=== PATIENT | female | born 1980 | race Caucasian/White ===

== ENCOUNTER 2019-09-20 20:32 | Inpatient (IN) | payer MEDICAID ==
[~2019-09-20] VITALS: Ht 165.1 cm; Wt 75.6 kg
[~2019-09-20 20:32] MED LIST: AMOX-117 PO; BUPR-94 PO; BUPR300T53 PO; DOXY-327 PO; HYDR-3965 PO; HYDR-4353 PO; LACT1CAP73 PO; MULT1TAB74 PO; OMEG-166 PO; TOPI50TA24 PO
[2019-09-20] MEDS ORDERED: normal saline 1000ML IV soln IV ONE (21:00)
[2019-09-20 21:31] LABS: BASOPHILS # (AUTO) 0.1 X10'3 (0-0.2); BASOPHILS % (AUTO) 0.6 % (0-1); EOSINOPHILS % (AUTO) 0 % (0-6); HEMATOCRIT 32.5 % (35.0-45.0); LYMPHOCYTES # (AUTO) 0.2 X10'3 (1.1-4.8); LYMPHOCYTES % (AUTO) 1.1 % (21-51); MEAN CORPUSCULAR VOLUME 85.5 FL (78-98); MEAN PLATELET VOLUME 8.6 FL (7.4-10.4); MONOCYTES # (AUTO) 1.1 X10'3 (0-0.9); MONOCYTES % (AUTO) 5.2 % (2-12); NEUTROPHILS # (AUTO) 20.1 X10'3 (1.8-7.7); NEUTROPHILS % (AUTO) 93.1 % (42-75); PLATELET COUNT 184 X10'3 (140-440); RED CELL DISTRIBUTION WIDTH 14.1 % (11.5-14.5); WHITE BLOOD COUNT 21.6 X10'3 (4.5-11.0)
[2019-09-20] MEDS ORDERED: CefTRIAXone 2gm/D5W 50ml 50 ML IV ONE (21:40)
[2019-09-20] MEDS ORDERED: azithromycin/NS 500mg/250ml 250 ML IV ONE (21:40)
[2019-09-20 21:57] LABS: ALANINE AMINOTRANSFERASE 597 U/L (12-78); ALBUMIN 3.1 G/DL (3.4-5.0); ALKALINE PHOSPHATASE 88 IU/L (46-116); ANION GAP 10 (8-16); ASPARTATE AMINO TRANSFERASE 418 U/L (10-37); BILIRUBIN,TOTAL 1.1 MG/DL (0.1-1.0); BLOOD UREA NITROGEN 39 MG/DL (7-18); BUN/CREATININE RATIO 17.3 (6.6-38.0); CALCIUM 7.4 MG/DL (8.5-10.1); CHLORIDE 102 MMOL/L (99-107); CREATININE 2.26 MG/DL (0.40-0.90); ETHANOL < 0.010 GM/DL (0.0-0.010); GLUCOSE 83 MG/DL (70-104); POTASSIUM 4.2 MMOL/L (3.5-5.1); SODIUM 133 MMOL/L (135-145); TOTAL CARBON DIOXIDE 21.2 MMOL/L (24-32); TOTAL PROTEIN 6.1 G/DL (6.4-8.2); eGFR 24 ML/MIN
[2019-09-20 22:55] LABS: URINE AMPHETAMINE SCREEN POSITIVE (Neg); URINE BARBITUATE SCREEN NEGATIVE (Neg); URINE BENZODIAZEPINES SCREEN NEGATIVE (Neg); URINE CANNABINOID SCREEN NEGATIVE (Neg); URINE COCAINE SCREEN NEGATIVE (Neg); URINE METHADONE SCREEN NEGATIVE (Neg); URINE OPIATE SCREEN NEGATIVE (Neg); URINE PHENCYCLIDINE SCREEN NEGATIVE (Neg)
[2019-09-20 23:01] LABS: CLARITY,URINE CLOUDY (Clear); COLOR,URINE YELLOW (Yellow); GLUCOSE, URINE NEGATIVE (Neg); KETONES,URINE NEGATIVE (Neg); LEUKOCYTE ESTERASE ,URINE SMALL (Neg); NITRITES, URINE NEGATIVE (Neg); OCCULT BLOOD,URINE TRACE-INTACT (Neg); PH,URINE 5.5 (4.8-8.0); PROTEIN,URINE 100 mg/dl (Neg)
[2019-09-20 23:03] LABS: UA COLLECTION TYPE STRAIGHT CATH
[2019-09-20] MEDS ORDERED: vancomycin/NS 1 GM ADD-VANTAGE 250 ML IV ONE (23:10)
[2019-09-20 23:11] LABS: AMORPHOUS PHOSPHATES 3+; BACTERIA,URINE 1+ /HPF (Neg); FINE GRANULAR CAST 0-3 /LPF (NEGATIVE); HYALINE CASTS 0-3 /LPF (NEGATIVE); MUCUS STRANDS FEW /LPF (Neg); RBC,URINE 0-2 /HPF (0-2); SQUAMOUS EPITHELIAL CELL,UR MODERATE /LPF (FEW); TRANSITIONAL EPI CELLS,URINE FEW /HPF
--- NOTE | 2019-09-20 23:12 | NUR ---
blood pressure remains in 70's systolic after 2.5 liters. received rocefin and zithromax currently infusing. pt moved to bed 2 from bed 10 for central line placement and hyptension.
--- NOTE | 2019-09-20 23:17 | NUR ---
Dr. Hall at bedside beginning central line placement.
[2019-09-20] MEDS: NORepinephrine 8mg/ 250ml NS 250 ML IV PRN (23:31)
[2019-09-20] MEDS ORDERED: morphine 4 MG/ML inj SYRINge IV PRN (23:55)
[2019-09-20] MEDS ORDERED: ondansetron/PF 4mg/2ml inj IV ONE (23:55)
--- NOTE | 2019-09-20 23:56 | NUR ---
pts girlfriend , roro, has been at bedside intermittently and is supportive and helpful. she pulled me aside privately and reproted toaht the pt did not want to tell the Md or nurses, but that she uses iv meth and last used yesterday just prior to these symptoms starting. I updated AAMIR Edwards.
[2019-09-21] VITALS (21 sets, daily range): BP systolic 89–121; BP diastolic 45–73
[2019-09-21] MEDS ORDERED: NORepinephrine 8mg/ 250ml NS 250 ML IV PRN (01:07)
[2019-09-21] MEDS ORDERED: normal saline 1000ml 1,000 ML IV PRN (01:07)
[2019-09-21] MEDS ORDERED: potassium Cl 20 mEq SR tablet PO PRN (01:10)
[2019-09-21] MEDS ORDERED: acetaminophen 325mg tablet PO PRN (01:10)
[2019-09-21] MEDS ORDERED: potassium Cl 20mEq/100mL bag 100 ML IV PRN ×2 (01:10)
[2019-09-21] MEDS ORDERED: ondansetron/PF 4mg/2ml inj IV PRN (01:10)
[2019-09-21] MEDS ORDERED: acetaminophen 650mg rectal suppository RC PRN (01:10)
[2019-09-21] MEDS: normal saline 1000ml 1,000 ML IV SCH ×3 (02:04→21:26)
[2019-09-21 02:25] LABS: TROPONIN I < 0.04 NG/ML (0.0-0.05)
[2019-09-21 02:58] LABS: BASOPHILS % (AUTO) 0.1 % (0-1); EOSINOPHILS % (AUTO) 0.1 % (0-6); HEMATOCRIT 28.8 % (35.0-45.0); HEMOGLOBIN 9.6 g/dl (12.0-16.0); LYMPHOCYTES # (AUTO) 0.5 X10'3 (1.1-4.8); MEAN CORPUSCULAR HEMOGLOBIN 28.4 PG (27.0-31.0); MEAN CORPUSCULAR HGB CONC 33.4 g/dL (33.0-36.5); MEAN CORPUSCULAR VOLUME 84.9 FL (78-98); MEAN PLATELET VOLUME 8.9 FL (7.4-10.4); MONOCYTES # (AUTO) 1.2 X10'3 (0-0.9); MONOCYTES % (AUTO) 5.5 % (2-12); NEUTROPHILS # (AUTO) 20.7 X10'3 (1.8-7.7); NEUTROPHILS % (AUTO) 92.3 % (42-75); PLATELET COUNT 166 X10'3 (140-440); RED BLOOD COUNT 3.39 X10'6 (4.20-5.60); WHITE BLOOD COUNT 22.5 X10'3 (4.5-11.0)
--- NOTE | 2019-09-21 03:00 | NUR ---
I have received report from Deshawn FLOR from ED and had the opportunity to ask questions. Room is set up and ready for PT arrival.
[2019-09-21 03:07] LABS: PARTIAL THROMBOPLASTIN TIME 39 SECONDS (22-32)
[2019-09-21 03:16] LABS: ANION GAP 10 (8-16); BLOOD UREA NITROGEN 33 MG/DL (7-18); BUN/CREATININE RATIO 18.5 (6.6-38.0); CHLORIDE 107 MMOL/L (99-107); CREATININE 1.78 MG/DL (0.40-0.90); GLUCOSE 86 MG/DL (70-104); POTASSIUM 3.8 MMOL/L (3.5-5.1); SODIUM 137 MMOL/L (135-145); TOTAL CARBON DIOXIDE 20.1 MMOL/L (24-32)
[2019-09-21 03:17] LABS: ALANINE AMINOTRANSFERASE 466 U/L (12-78); ALBUMIN 2.7 G/DL (3.4-5.0); ALKALINE PHOSPHATASE 80 IU/L (46-116); ASPARTATE AMINO TRANSFERASE 293 U/L (10-37); BILIRUBIN,TOTAL 0.7 MG/DL (0.1-1.0); CALCIUM 6.4 MG/DL (8.5-10.1); CHOL/HDL RATIO 1.9 (0.00-4.99); CHOLESTEROL 86 MG/DL (0-200); HDL CHOLESTEROL 45 MG/DL (35-60); LDL CHOLESTEROL 24 MG/DL (50-100); MAGNESIUM 1.6 MG/DL (1.5-2.4); TOTAL PROTEIN 5.5 G/DL (6.4-8.2); TRIGLYCERIDES 59 MG/DL (20-135); eGFR 32 ML/MIN
[2019-09-21 03:45] LABS: OXYGEN SATURATION (MIXED VEN) 73.4 % (60-80); PO2 MIXED VENOUS (TEMP COR) 40.7 mmHg (35-46)
--- NOTE | 2019-09-21 03:45 | NUR ---
PT arrived from ED via gurney. PT transferred over to ICU bed via slide-board and placed on bedside monitor. PT is on RA and tolerating well, O2 sat >97%. Pt is on Levo running to RT IJ CVL @ 0.15mcg/kg/min. PT is afebrile with temp of 37.5. No skin issues noted other than scab to RT hills. PT turns self easily. Bed is locked and low. Call light is with in reach. Will continue to monitor.
--- NOTE | 2019-09-21 06:42 | NUR ---
Problems reprioritized. Patient report given, questions answered & plan of care reviewed with Vangie FLOR.
--- NOTE | 2019-09-21 06:44 | NUR ---
Patient in room CICU 2006. I have received report from Tabatha FLOR and had the opportunity to ask questions and assume patient care.
[2019-09-21] MEDS: CEFEPIME 2gm in D5W 50mL 50 ML IV SCH ×2 (07:40→19:43)
[2019-09-21] MEDS: docusate sod 100mg capsule PO SCH ×2 (07:44→20:00)
[2019-09-21] MEDS ORDERED: heparin, porcine 5000 units/ml vial SQ SCH (08:00)
[2019-09-21] MEDS: K, MAG and/or Phos replacement - Verify level? MC SCH (08:00)
[2019-09-21] MEDS ORDERED: PANT-47 PO (10:35)
--- NOTE | 2019-09-21 11:00 | NUR ---
notified Dr. Pride of Ca of 6.4 and ionized Ca of 1.03; no new orders received
--- NOTE | 2019-09-21 12:05 | NUR ---
Eating well and good appetite, eating 75-100% of heart healthy diet, meeting needs. Admitted with septic shock, UTI, transaminitis, receiving IV antibiotics for infective endocarditis. Recommend: 1. continue heart healthy diet 2. bowel regularity 3. wt per rx Addendum: 09/21/19 at [address] Amended: Links added.
[2019-09-21] MEDS: NORepinephrine 8mg/ 250ml NS 250 ML IV PRN (12:58)
[2019-09-21] MEDS ORDERED: DOPamine 400mg/D5W 250ml 250 ML IV SCH ×2 (13:45→14:40)
--- NOTE | 2019-09-21 14:33 | NUR ---
turned of levophed per Dr. Pride and started dopamine. BP decreased to 63/24. restarted levophed at 0.2mcg/kg/hr and d/cd dopamine. New BP 102/57. aware; new orders received.
[2019-09-21] MEDS: acetaminophen 325mg tablet PO PRN (15:22)
--- NOTE | 2019-09-21 18:34 | NUR ---
Patient report given, questions answered & plan of care reviewed with Tabatha FLOR.
--- NOTE | 2019-09-21 18:40 | NUR ---
Patient in room CICU 2006. I have received report from Vangie FLOR, and had the opportunity to ask questions and assume patient care.
[2019-09-21] MEDS ORDERED: vancomycin/NS 1 GM ADD-VANTAGE 250 ML IV SCH (23:00)
[2019-09-22] VITALS (28 sets, daily range): BP systolic 65–141; BP diastolic 39–84
[2019-09-22 04:24] LABS: BASOPHILS % (AUTO) 0.3 % (0-1); EOSINOPHILS # (AUTO) 0.1 X10'3 (0-0.9); EOSINOPHILS % (AUTO) 1.1 % (0-6); HEMATOCRIT 26.1 % (35.0-45.0); LYMPHOCYTES # (AUTO) 0.7 X10'3 (1.1-4.8); LYMPHOCYTES % (AUTO) 6.9 % (21-51); MEAN CORPUSCULAR HEMOGLOBIN 29.5 PG (27.0-31.0); MEAN CORPUSCULAR HGB CONC 34.5 g/dL (33.0-36.5); MEAN CORPUSCULAR VOLUME 85.4 FL (78-98); MEAN PLATELET VOLUME 9.5 FL (7.4-10.4); MONOCYTES # (AUTO) 0.5 X10'3 (0-0.9); MONOCYTES % (AUTO) 4.7 % (2-12); NEUTROPHILS # (AUTO) 8.4 X10'3 (1.8-7.7); PLATELET COUNT 126 X10'3 (140-440); RED BLOOD COUNT 3.05 X10'6 (4.20-5.60); RED CELL DISTRIBUTION WIDTH 14.1 % (11.5-14.5); WHITE BLOOD COUNT 9.6 X10'3 (4.5-11.0)
[2019-09-22 04:32] LABS: PARTIAL THROMBOPLASTIN TIME 36 SECONDS (22-32)
[2019-09-22 04:34] LABS: ANION GAP 9 (8-16); CHLORIDE 111 MMOL/L (99-107); GLUCOSE 85 MG/DL (70-104); POTASSIUM 3.5 MMOL/L (3.5-5.1); SODIUM 142 MMOL/L (135-145); TOTAL CARBON DIOXIDE 22.1 MMOL/L (24-32)
[2019-09-22 04:35] LABS: ALANINE AMINOTRANSFERASE 292 U/L (12-78); ALBUMIN 2.4 G/DL (3.4-5.0); ALBUMIN/GLOBULIN RATIO 0.9 (1.1-1.5); ALKALINE PHOSPHATASE 86 IU/L (46-116); ASPARTATE AMINO TRANSFERASE 105 U/L (10-37); BILIRUBIN,TOTAL 0.3 MG/DL (0.1-1.0); BLOOD UREA NITROGEN 15 MG/DL (7-18); BUN/CREATININE RATIO 15.6 (6.6-38.0); CALCIUM 7.5 MG/DL (8.5-10.1); CREATININE 0.96 MG/DL (0.40-0.90); MAGNESIUM 1.9 MG/DL (1.5-2.4); PHOSPHORUS 2.3 MG/DL (2.3-4.5); TOTAL PROTEIN 5.2 G/DL (6.4-8.2); eGFR 64 ML/MIN
[2019-09-22] MEDS ORDERED: ibuprofen 200mg tablet PO ONE (05:10)
--- NOTE | 2019-09-22 06:28 | NUR ---
Patient in room CICU 2006. I have received report from Tabatha FLOR and had the opportunity to ask questions and assume patient care.
[2019-09-22] MEDS: normal saline 1000ml 1,000 ML IV SCH ×3 (07:07→20:44)
[2019-09-22 07:55] LABS: COMPLEMENT C3, SERUM 77 mg/dL (82-167); COMPLEMENT C4, SERUM 23 mg/dL (14-44)
[2019-09-22] MEDS: docusate sod 100mg capsule PO SCH ×2 (08:00→19:49)
[2019-09-22] MEDS: K, MAG and/or Phos replacement - Verify level? MC SCH (08:00)
[2019-09-22 08:10] LABS: HEP B CORE AB, IGM Negative (Negative); HEPATITIS C ANTIBODY <0.1 s/co ratio (0.0-0.9)
[2019-09-22] MEDS: pantoprazole 40mg Tablet.DR PO SCH (08:20)
[2019-09-22] MEDS: buPROPion SR 150mg tablet PO SCH ×3 (08:20→19:48)
[2019-09-22] MEDS: CEFEPIME 2gm in D5W 50mL 50 ML IV SCH ×2 (08:21→19:48)
[2019-09-22] MEDS ORDERED: normal saline 1000ml 1,000 ML IV ONE ×2 (11:25→14:40)
[2019-09-22] MEDS: vancomycin/NS 1 GM ADD-VANTAGE 250 ML IV SCH (12:23)
--- NOTE | 2019-09-22 14:42 | NUR ---
Patient report given, questions answered & plan of care reviewed with Doug FLOR.
--- NOTE | 2019-09-22 14:48 | NUR ---
Patient in room CICU 2006. I have received report from Zuleyka FLOR and had the opportunity to ask questions and assume patient care.
--- NOTE | 2019-09-22 16:31 | NUR ---
Pt complains of epigastric pain, full feeling
--- NOTE | 2019-09-22 18:25 | NUR ---
Patient in room CICU 2006. I have received report from Doug FLOR, and had the opportunity to ask questions and assume patient care.
--- NOTE | 2019-09-22 18:26 | NUR ---
Problems reprioritized. Patient report given, questions answered & plan of care reviewed with Tabatha FLOR.
--- NOTE | 2019-09-22 19:30 | NUR ---
Levo is off. Pt is tolerating well thus far. Will continue to monitor.
[2019-09-23] VITALS (23 sets, daily range): BP systolic 95–129; BP diastolic 45–71
[2019-09-23] MEDS: vancomycin/NS 1 GM ADD-VANTAGE 250 ML IV SCH ×3 (00:32→23:20)
[2019-09-23] MEDS ORDERED: lactulose 20gm/30ml cup PO PRN (01:10)
[2019-09-23 03:35] LABS: BASOPHILS % (AUTO) 0.4 % (0-1); EOSINOPHILS # (AUTO) 0.2 X10'3 (0-0.9); EOSINOPHILS % (AUTO) 1.9 % (0-6); HEMATOCRIT 25.8 % (35.0-45.0); HEMOGLOBIN 8.8 g/dl (12.0-16.0); LYMPHOCYTES % (AUTO) 11.2 % (21-51); MEAN CORPUSCULAR HEMOGLOBIN 29.1 PG (27.0-31.0); MEAN CORPUSCULAR HGB CONC 34.1 g/dL (33.0-36.5); MEAN CORPUSCULAR VOLUME 85.4 FL (78-98); MEAN PLATELET VOLUME 9.1 FL (7.4-10.4); MONOCYTES # (AUTO) 0.5 X10'3 (0-0.9); MONOCYTES % (AUTO) 5.3 % (2-12); NEUTROPHILS # (AUTO) 7.2 X10'3 (1.8-7.7); NEUTROPHILS % (AUTO) 81.2 % (42-75); PLATELET COUNT 146 X10'3 (140-440); RED BLOOD COUNT 3.02 X10'6 (4.20-5.60); RED CELL DISTRIBUTION WIDTH 14.2 % (11.5-14.5); WHITE BLOOD COUNT 8.8 X10'3 (4.5-11.0)
[2019-09-23 03:43] LABS: PARTIAL THROMBOPLASTIN TIME 31 SECONDS (22-32)
[2019-09-23 03:45] LABS: ALANINE AMINOTRANSFERASE 203 U/L (12-78); ALBUMIN 2.4 G/DL (3.4-5.0); ALBUMIN/GLOBULIN RATIO 0.8 (1.1-1.5); ALKALINE PHOSPHATASE 96 IU/L (46-116); ANION GAP 9 (8-16); ASPARTATE AMINO TRANSFERASE 49 U/L (10-37); BILIRUBIN,TOTAL 0.4 MG/DL (0.1-1.0); BLOOD UREA NITROGEN 9 MG/DL (7-18); BUN/CREATININE RATIO 12.5 (6.6-38.0); CALCIUM 7.8 MG/DL (8.5-10.1); CHLORIDE 112 MMOL/L (99-107); CREATININE 0.72 MG/DL (0.40-0.90); GLUCOSE 77 MG/DL (70-104); MAGNESIUM 1.6 MG/DL (1.5-2.4); PHOSPHORUS 2.4 MG/DL (2.3-4.5); POTASSIUM 3.4 MMOL/L (3.5-5.1); SODIUM 141 MMOL/L (135-145); TOTAL PROTEIN 5.3 G/DL (6.4-8.2); eGFR 90 ML/MIN
--- NOTE | 2019-09-23 04:30 | NUR ---
Levo remains off and PT is tolerating well. VSS, SBP>100. Will continue to monitor.
--- NOTE | 2019-09-23 06:39 | NUR ---
Problems reprioritized. Patient report given, questions answered & plan of care reviewed with Ester FLOR.
--- NOTE | 2019-09-23 06:41 | NUR ---
Patient in room CICU 2006. I have received report from Tabatha FLOR and had the opportunity to ask questions and assume patient care.
[2019-09-23] MEDS: CEFEPIME 2gm in D5W 50mL 50 ML IV SCH ×2 (08:30→20:53)
[2019-09-23] MEDS: buPROPion SR 150mg tablet PO SCH ×3 (08:30→20:00)
[2019-09-23] MEDS: pantoprazole 40mg Tablet.DR PO SCH (08:30)
[2019-09-23] MEDS: docusate sod 100mg capsule PO SCH ×2 (08:30→20:53)
[2019-09-23] MEDS: potassium Cl 20 mEq SR tablet PO PRN ×3 (08:33→17:42)
[2019-09-23] MEDS: K, MAG and/or Phos replacement - Verify level? MC SCH (08:34)
[2019-09-23] MEDS ORDERED: VANCOMYCIN LEVEL IV ONE ×3 (10:30→22:30)
--- NOTE | 2019-09-23 14:21 | NUR ---
clarified orders for CT of abdomen for RUQ pain to be done at 09/24/19 @ 0900, start bowel prep tonight per dr. hilario.
--- NOTE | 2019-09-23 18:24 | NUR ---
Problems reprioritized. Patient report given, questions answered & plan of care reviewed with Destiney FLOR.
--- NOTE | 2019-09-23 18:30 | NUR ---
Patient in room CICU 2006. I have received report from rn and had the opportunity to ask questions and assume patient care.
[2019-09-23] MEDS: diatr meglu/diatrizoate 30ml oral sol.-(3 dose) bottle PO SCH (20:53)
[2019-09-24] VITALS (18 sets, daily range): BP systolic 103–133; BP diastolic 45–77
[2019-09-24 02:52] LABS: BASOPHILS % (AUTO) 0.6 % (0-1); EOSINOPHILS # (AUTO) 0.2 X10'3 (0-0.9); EOSINOPHILS % (AUTO) 4.1 % (0-6); HEMATOCRIT 23.7 % (35.0-45.0); LYMPHOCYTES # (AUTO) 0.9 X10'3 (1.1-4.8); LYMPHOCYTES % (AUTO) 21.4 % (21-51); MEAN CORPUSCULAR HEMOGLOBIN 28.5 PG (27.0-31.0); MEAN CORPUSCULAR HGB CONC 33.6 g/dL (33.0-36.5); MEAN CORPUSCULAR VOLUME 84.8 FL (78-98); MEAN PLATELET VOLUME 9.2 FL (7.4-10.4); MONOCYTES # (AUTO) 0.6 X10'3 (0-0.9); MONOCYTES % (AUTO) 13.9 % (2-12); NEUTROPHILS # (AUTO) 2.6 X10'3 (1.8-7.7); PARTIAL THROMBOPLASTIN TIME 32 SECONDS (22-32); PLATELET COUNT 127 X10'3 (140-440); RED BLOOD COUNT 2.79 X10'6 (4.20-5.60); RED CELL DISTRIBUTION WIDTH 13.8 % (11.5-14.5); WHITE BLOOD COUNT 4.4 X10'3 (4.5-11.0)
[2019-09-24 02:56] LABS: ALANINE AMINOTRANSFERASE 170 U/L (12-78); ALBUMIN 2.2 G/DL (3.4-5.0); ALBUMIN/GLOBULIN RATIO 0.8 (1.1-1.5); ALKALINE PHOSPHATASE 101 IU/L (46-116); ANION GAP 9 (8-16); ASPARTATE AMINO TRANSFERASE 75 U/L (10-37); BILIRUBIN,TOTAL 0.3 MG/DL (0.1-1.0); BLOOD UREA NITROGEN 5 MG/DL (7-18); BUN/CREATININE RATIO 7.4 (6.6-38.0); CHLORIDE 114 MMOL/L (99-107); CREATININE 0.68 MG/DL (0.40-0.90); GLUCOSE 72 MG/DL (70-104); MAGNESIUM 1.3 MG/DL (1.5-2.4); PHOSPHORUS 2.7 MG/DL (2.3-4.5); POTASSIUM 3.2 MMOL/L (3.5-5.1); SODIUM 143 MMOL/L (135-145); TOTAL CARBON DIOXIDE 19.9 MMOL/L (24-32); eGFR > 90 ML/MIN
--- NOTE | 2019-09-24 06:38 | NUR ---
Patient in room CICU 2006. I have received report from Destiney and had the opportunity to ask questions and assume patient care.
[2019-09-24] MEDS: diatr meglu/diatrizoate 30ml oral sol.-(3 dose) bottle PO SCH ×2 (07:00→10:03)
[2019-09-24] MEDS: K, MAG and/or Phos replacement - Verify level? MC SCH (08:00)
[2019-09-24] MEDS: buPROPion SR 150mg tablet PO SCH ×3 (08:25→20:00)
[2019-09-24] MEDS: docusate sod 100mg capsule PO SCH ×2 (08:25→19:46)
[2019-09-24] MEDS: potassium Cl 20 mEq SR tablet PO PRN ×3 (08:25→18:12)
[2019-09-24] MEDS: pantoprazole 40mg Tablet.DR PO SCH (08:25)
[2019-09-24] MEDS: CEFEPIME 2gm in D5W 50mL 50 ML IV SCH (08:26)
[2019-09-24] MEDS ORDERED: iohexol 300mg/ml 100ml inj. ONE (10:09)
--- NOTE | 2019-09-24 10:14 | NUR ---
Patient left for CT at this time accompanied by CT and BASIA Forrest.
--- NOTE | 2019-09-24 10:39 | NUR ---
Adriane FLOR has returned with patient from CT.
--- NOTE | 2019-09-24 10:47 | NUR ---
Patient's female friend in room at this time, patient does not appear to be in distress.
--- NOTE | 2019-09-24 10:53 | NUR ---
Went to check patient pulse oximeter, found patient finishing eating [employer] food, which friend brought for patient.
--- NOTE | 2019-09-24 12:28 | NUR ---
Informed Dr Pride of magnesium 1.3. He stated "That's pretty trivial compared to her meth use. Let's stop checking it."
--- NOTE | 2019-09-24 13:10 | NUR ---
Patient states she is "cold." Patient given two warm blankets, and temperature in room increased. Patient does not appear to be in distress at this time.
--- NOTE | 2019-09-24 13:19 | NUR ---
Patient given prescribed diet at this time. Patient does not appear to be in distress.
[2019-09-24] MEDS ORDERED: furosemide 20MG tablet PO ONE (15:05)
[2019-09-24] MEDS ORDERED: levoFLOXACIN 500mg tablet PO ONE (15:05)
[2019-09-24] MEDS: acetaminophen 325mg tablet PO PRN (16:07)
--- NOTE | 2019-09-24 17:27 | NUR ---
Problems reprioritized. Patient report given, questions answered & plan of care reviewed with Blanca. Pt transported to room 357-A with all personal belongings via wc.
--- NOTE | 2019-09-24 17:31 | NUR ---
Received pt report from CICU. Pt on surgical floor, A&O x3. V/S 99.0, HR 94, Resp 16, BP 116/42, O2sat 100% R/A. resting comfortably in bed at this time.
--- NOTE | 2019-09-24 19:14 | NUR ---
Problems reprioritized. Patient report given, questions answered & plan of care reviewed with BASIA Marvin.
[2019-09-25] VITALS: BP 94/42
[2019-09-25 06:01] LABS: BASOPHILS % (AUTO) 0.7 % (0-1); EOSINOPHILS # (AUTO) 0.2 X10'3 (0-0.9); EOSINOPHILS % (AUTO) 5.1 % (0-6); HEMATOCRIT 26.2 % (35.0-45.0); LYMPHOCYTES # (AUTO) 0.8 X10'3 (1.1-4.8); LYMPHOCYTES % (AUTO) 21.2 % (21-51); MEAN CORPUSCULAR HEMOGLOBIN 28.8 PG (27.0-31.0); MEAN CORPUSCULAR HGB CONC 34.2 g/dL (33.0-36.5); MEAN PLATELET VOLUME 9.7 FL (7.4-10.4); MONOCYTES # (AUTO) 0.9 X10'3 (0-0.9); MONOCYTES % (AUTO) 21.8 % (2-12); NEUTROPHILS % (AUTO) 51.2 % (42-75); PLATELET COUNT 151 X10'3 (140-440); RED BLOOD COUNT 3.12 X10'6 (4.20-5.60); WHITE BLOOD COUNT 3.9 X10'3 (4.5-11.0)
--- NOTE | 2019-09-25 06:22 | NUR ---
Patient in room [facility] 357. I have received report from BASIA Marvin and had the opportunity to ask questions and assume patient care.
[2019-09-25 06:32] LABS: ALANINE AMINOTRANSFERASE 161 U/L (12-78); ALBUMIN 2.5 G/DL (3.4-5.0); ALBUMIN/GLOBULIN RATIO 0.7 (1.1-1.5); ALKALINE PHOSPHATASE 120 IU/L (46-116); ANION GAP 6 (8-16); ASPARTATE AMINO TRANSFERASE 61 U/L (10-37); BILIRUBIN,TOTAL 0.3 MG/DL (0.1-1.0); BLOOD UREA NITROGEN 4 MG/DL (7-18); CALCIUM 8.2 MG/DL (8.5-10.1); CHLORIDE 107 MMOL/L (99-107); GLUCOSE 75 MG/DL (70-104); PHOSPHORUS 3.8 MG/DL (2.3-4.5); POTASSIUM 3.8 MMOL/L (3.5-5.1); SODIUM 140 MMOL/L (135-145); TOTAL CARBON DIOXIDE 26.9 MMOL/L (24-32); TOTAL PROTEIN 5.9 G/DL (6.4-8.2); eGFR 79 ML/MIN
--- NOTE | 2019-09-25 06:40 | NUR ---
Problems reprioritized. Patient report given, questions answered & plan of care reviewed with Blanca FLOR. Patient showered last nigh and rested with no sign of discomfort.
[2019-09-25] MEDS: docusate sod 100mg capsule PO SCH (07:30)
[2019-09-25] MEDS: pantoprazole 40mg Tablet.DR PO SCH (07:30)
[2019-09-25] MEDS: buPROPion SR 150mg tablet PO SCH ×2 (07:31→07:33)
[2019-09-25 08:30] VITALS: BP 94/60
[2019-09-25 08:35] VITALS: BP 108/54
--- NOTE | 2019-09-25 08:50 | NUR ---
wrong pt V/S. Addendum: 09/25/19 at 0851 by Blanca Ac RN Amended: Links added.
[2019-09-25] MEDS ORDERED: LEVO500T89 PO (10:53)
[2019-09-25] MEDS ORDERED: levoFLOXACIN 500mg tablet PO SCH (11:00)
[2019-09-25] MEDS ORDERED: VANCOmycin 1250MG/NS 250ml Bag 250 ML IV SCH (11:00)
--- NOTE | 2019-09-25 12:32 | NUR ---
Patient D/C'd home. in stable conditions. A%O x3, No c/o pain or discomfort. Extended IV removed. Discharge and medication instructions given. Pt was escorted on w/c to front lobby. Left the facility via private vehicle accompanied by friend.
[2019-09-25] MEDS ORDERED: VANCOMYCIN LEVEL IV ONE (22:30)
== END 2019-09-25 12:15 | disposition home or self-care (01) | DRG 720 ==
LOC: ER 20:33 → ED HOLD 09-21 01:07 → UNDOADMIN 09-21 01:43 → ED HOLD 09-21 01:43 → CICU 2S 09-21 03:05 → ED HOLD 09-21 03:05 → SUR 3N 09-24 17:25
PROVIDERS: ADMIT Internal Medicine Critical Care Medicine; ATTEND Internal Medicine Critical Care Medicine
PROC: 05HY33Z Insertion of Infusion Device into Upper Vein, Percutaneous Approach (ICD-10-PCS; principal; 2019-09-21)
PROC: BW211ZZ Computerized Tomography (CT Scan) of Abdomen and Pelvis using Low Osmolar Contrast (ICD-10-PCS; 2019-09-24)
DX: A41.9 Sepsis, unspecified organism (principal); R57.1 Hypovolemic shock; R65.21 Severe sepsis with septic shock; N17.9 Acute kidney failure, unspecified; F15.10 Other stimulant abuse, uncomplicated; N39.0 Urinary tract infection, site not specified; F17.200 Nicotine dependence, unspecified, uncomplicated; R16.0 Hepatomegaly, not elsewhere classified; F12.90 Cannabis use, unspecified, uncomplicated; F32.9 Major depressive disorder, single episode, unspecified; F41.9 Anxiety disorder, unspecified; G89.29 Other chronic pain; K21.9 Gastro-esophageal reflux disease without esophagitis; K58.9 Irritable bowel syndrome, unspecified; R74.0 Nonspecific elevation of levels of transaminase and lactic acid dehydrogenase [LDH]; Z88.2 Allergy status to sulfonamides; Z90.49 Acquired absence of other specified parts of digestive tract
CPT/HCPCS: 36415; 71045; 74176; 74177; 76937; 80053; 80061; 80202; 80305; 80320; 81001; 82330; 82595; 82810; 83605; 83735; 83880; 84100; 84145; 84443; 84484; 85025; 85610; 85730; 86160; 86705; 86706; 86803; 87040; 87081; 87088; 87502; 87503; 93005; 93306; 97116; 97161; 97530; G0378; J0456; J0692; J0696; J1265; J2270; J2405; J3370; J7030; Q9963; Q9967

== ENCOUNTER 2021-01-31 05:20 | Emergency (ER) | payer MEDICAID ==
[~2021-01-31] VITALS: Ht 165.1 cm; Wt 86.5 kg
[~2021-01-31 05:20] MED LIST changes: -AMOX-117 PO; -DOXY-327 PO; -HYDR-3965 PO; -HYDR-4353 PO; -LACT1CAP73 PO; +LEVO500T89 PO; -MULT1TAB74 PO; -OMEG-166 PO; -TOPI50TA24 PO
[2021-01-31] MEDS ORDERED: proparacaine 0.5% ophthalmic drops 15ml EACHEYE ONE (05:40)
[2021-01-31] MEDS ORDERED: OFLO5DRO LEFTEYE (06:28)
[2021-01-31] MEDS ORDERED: IBUP-1984 PO (06:57)
[2021-01-31 07:02] VITALS: BP 128/68
== END 2021-01-31 07:00 | disposition home or self-care (01) ==
LOC: ER 05:20
DX: S05.02XA Injury of conjunctiva and corneal abrasion without foreign body, left eye, initial encounter (principal); H57.12 Ocular pain, left eye; K21.9 Gastro-esophageal reflux disease without esophagitis; F31.9 Bipolar disorder, unspecified; F17.200 Nicotine dependence, unspecified, uncomplicated; F12.90 Cannabis use, unspecified, uncomplicated; F15.90 Other stimulant use, unspecified, uncomplicated; Z86.14 Personal history of Methicillin resistant Staphylococcus aureus infection; Z90.49 Acquired absence of other specified parts of digestive tract; Z56.0 Unemployment, unspecified; Z88.2 Allergy status to sulfonamides; Z79.2 Long term (current) use of antibiotics; Z79.899 Other long term (current) drug therapy; X58.XXXA Exposure to other specified factors, initial encounter; Y93.89 Activity, other specified; Y92.89 Other specified places as the place of occurrence of the external cause; Y99.8 Other external cause status
CPT/HCPCS: 99283